=== PATIENT | male | born 1945 | race Caucasian/White ===

== ENCOUNTER 2017-08-07 06:01 | Emergency (ER) | payer OTHER ==
[~2017-08-07] VITALS: Ht 182.9 cm; Wt 87.9 kg
[2017-08-07 06:23] LABS: HEMATOCRIT 39.4 % (38.0-50.0); HEMOGLOBIN 13.4 G/DL (12.5-16.6); MCH 31.9 PG (29.0-34.0); MCV 93.8 FL (86-99); PLATELET COUNT 239 K/uL (156-360); RBC DIS.WIDTH-SD 44.9 % (39-53); WHITE BLOOD COUNT 11.2 K/uL (4.1-10.2)
[2017-08-07 06:24] LABS: PTT 26.9 SEC (25-37)
[2017-08-07 06:27] LABS: CHLORIDE 101 mEq/L (99-109); GLUCOSE 182 mg/dL (70-99); POTASSIUM 3.5 mEq/L (3.7-5.4); SODIUM 141 mEq/L (136-147)
[2017-08-07 06:31] LABS: CREATININE 1.4 mg/dL (0.6-1.3); GFR ESTIMATE (CALCULATED) 53 mL/min/ (58.99-99999)
[2017-08-07 06:32] LABS: UREA NITROGEN (BUN) 19 mg/dL (9-23)
[2017-08-07 06:44] LABS: TROP-I INTERPRETATION NEGATIVE; TROPONIN-I 0.11 ng/mL (0.0-0.30)
[2017-08-07 07:00] LABS: APPEARANCE CLEAR ((CLEAR)); BILIRUBIN NEGATIVE; BLOOD NEGATIVE; COLOR YELLOW ((YELLOW)); GLUCOSE (STRIP) NEGATIVE; KETONES NEGATIVE; LEUKOCYTES NEGATIVE; NITRITE NEGATIVE; PROTEIN (STRIP) NEGATIVE; SPECIFIC GRAVITY 1.015 (1.000-1.030); UCUL ADDED? NO; UROBILINOGEN 0.2 MG/DL (0.2-1.0)
[2017-08-07 09:40] VITALS: BP 131/70
== END 2017-08-07 10:17 | disposition short-term general hospital (02) ==
LOC: EME → EDBD 06:01 → EME 10:17
PROVIDERS: Emergency Medicine
PROC: 0BH17EZ Insertion of Endotracheal Airway into Trachea, Via Natural or Artificial Opening (ICD-10-PCS; principal; 2017-08-07)
DX: I63.9 Cerebral infarction, unspecified (principal); I65.1 Occlusion and stenosis of basilar artery; J96.00 Acute respiratory failure, unspecified whether with hypoxia or hypercapnia; R56.9 Unspecified convulsions; I48.91 Unspecified atrial fibrillation; E11.9 Type 2 diabetes mellitus without complications; E78.5 Hyperlipidemia, unspecified; I10 Essential (primary) hypertension; Z79.01 Long term (current) use of anticoagulants
CPT/HCPCS: 70450; 70496; 70498; 71010; 80048; 81003; 84484; 85027; 85610; 85730; 87070; 87205; 93005; 94002; 99281; 99285; J1953; J2060; J2250; J3010; J7030; J7050